=== PATIENT | female | born 1975 | race Caucasian/White ===

== ENCOUNTER 2017-02-28 13:32 | Emergency (ER) | payer MEDICAID ==
[~2017-02-28] VITALS: Ht 160 cm; Wt 52.2 kg
[~2017-02-28 13:32] MED LIST: ACTHAR PO; AMBIENCR; ATIVAN1 MG PO; BACLOFEN 10MG T10 M1 PO; BENADRYL25 MG PO; BENTYL10 MG; CALCIUM-VITAMI1 EACH PO; CELEXA20 MG PO; CELLCEPT500 MG PO; CENTRUM SILVER1 EAC2 PO; CIPRO250 M1 PO; CITRATE OF MAG296 ML PO; CLONAZEPAM 0.50.5 M1; CLONAZEPAM 0.50.5 M1 PO; CLONAZEPAM 1 MG1 M1 PO; COPAXONE; COUGH DROPS1 EAC1 PO; CYMBALTA60 MG PO; DEXAMETHASONE 22 M1; ENOXAPARIN40 MG/0.1 SUBQ; EQUETRO200 MG; FIORICET 50-321 EACH PO; FLEXERIL PO; FLONASE 0.05%50 MCG NS; HYDROCODON-ACE1 EAC7; HYDROCODONE-AP1 EA15 PO; HYDROCODONE-AP1 EAC6 PO; HYDROMORPHO2 MG/1 M5 IV; IBUPROFEN 600600 M1 PO; IBUPROFEN 800800 M1 PO; LAMICTAL100 MG PO; LEXAPRO20 MG PO; LIORESAL 10 MG10 MG PO; LITHIUM CARBON300 M3 PO; MAXALT; MINIPRESS1 MG PO; MIRALAX17 GM PO; MOBIC7.5 MG PO; MUSCLE RELAXER; NEURONTIN 300300 M1 PO; NEURONTIN600 MG PO; NORCO 10-325 T1 EACH PO; NORCO 5-325 TA1 EACH PO; NORCO 7.5-3251 EACH PO; ONDANSETRON HCL4 M2 IV; PANTOPRAZOLE SO40 M1 PO; PERCOCET PO; PHENERGAN 25 MG25 M1 RECTAL; PREDNISONE 20 M20 M1; PREDNISONE 20 M20 M1 PO; PREDNISONE 20 M20 MG PO; PREDNISONE50 MG PO; PROAIR RESPICL90 MCG IH; PROTONIX40 M1 PO; PROZAC20 MG PO; REBIF; REMERON15 MG PO; RESTORIL7.5 MG; TOPAMAX; TOPAMAX50 MG PO; TOPIRAMATE50 MG PO; TORADOL 10 MG T10 MG PO; TRAMADOL 50 MG50 MG; TRAZODONE HCL100 MG PO; ULTRAM 50MG TAB50 MG PO; VALIUM5 MG PO; VENTOLIN HFA 1818 GM; VICODIN 5-5001 EACH PO; WAL-FEX ALLERG180 MG PO; WELLBUTRIN 100100 MG PO; XANAX 0.5 MG0.5 MG PO; ZANAFLEX2 M2 PO; ZOFRAN 4 MG ORAL4 M1 DIS; ZOFRAN4 MG PO; ZOFRAN8 MG PO; ZOLOFT50 MG; [UNRECOGNIZED DRUG - OTHER]; [UNRECOGNIZED DRUG - OTHER] PO; [UNRECOGNIZED DRUG - OTHER] SQ; [UNRECOGNIZED DRUG - REMARK]
[2017-02-28 16:07] VITALS: BP 128/88
--- NOTE | 2017-02-28 17:01 | EKG ---
[place] [address] ELECTROCARDIOGRAM REPORT Name: MADELEINE PEREZ Room: [facility]#: [id number] Admission: 02/28/17 Attend Phys: Discharge: 02/28/17 Date of : 79 Report #: [id number] THIS REPORT FOR: //name// [facility] ED Test Date: 2017-02-28 Test Time: 14:07:14 Pat Name: MADELEINE FERRERA Department: Room: Gender: F Racebook Writer: Jeb RIBEIRO : 1975 Requested By: Marilyn Lund Order Number: [id number] MD: Martín Fuchs Measurements Intervals [place] Rate: 132 P: 37 DC: 135 QRS: 0 QRSD: 134 T: 30 QT: 281 QTc: 417 Interpretive Statements Sinus tachycardia septal q waves noted Probable left atrial enlargement Baseline wander in lead(s) V2,V4,V5,V6 Compared to ECG 06/17/2014 21:29:24 Myocardial infarct finding now present Sinus rhythm no longer present Electronically Signed On 02-28-2017 17:01:29 FORMULA MAKER by Martín Fuchs [email or web address] <ELECTRONICALLY SIGNED> By: Martín Fuchs MD, [facility] 02/28/17 1701 1407 1407 Martín Fuchs MD, [facility] /EPI
== END 2017-02-28 16:08 | disposition home or self-care (01) ==
LOC: M.ERS 13:32
DX: F41.0 Panic disorder [episodic paroxysmal anxiety] (principal); G89.29 Other chronic pain; M79.7 Fibromyalgia; F43.10 Post-traumatic stress disorder, unspecified; M19.90 Unspecified osteoarthritis, unspecified site; G43.909 Migraine, unspecified, not intractable, without status migrainosus; K21.9 Gastro-esophageal reflux disease without esophagitis; F31.9 Bipolar disorder, unspecified; Z88.5 Allergy status to narcotic agent; Z88.1 Allergy status to other antibiotic agents; Z88.8 Allergy status to other drugs, medicaments and biological substances

== ENCOUNTER 2017-05-08 15:34 | Emergency (ER) | payer MEDICAID ==
[~2017-05-08] VITALS: Ht 162.6 cm; Wt 63.5 kg
[2017-05-08 16:04] LABS: URINE BILIRUBIN NEGATIVE (Negative); URINE BLOOD NEGATIVE (Negative); URINE CLARITY CLEAR; URINE COLOR YELLOW; URINE GLUCOSE-RANDOM NEGATIVE (Negative); URINE KETONES NEGATIVE (Negative); URINE LEUKOCYTES-REFLEX NEGATIVE (Negative); URINE NITRITE-REFLEX NEGATIVE (Negative); URINE PROTEIN NEGATIVE (Negative); URINE SPECIFIC GRAVITY 1.015 (1.005-1.030); URINE UROBILINOGEN 0.2 E.U./dl (0.2-1.0)
[2017-05-08] MEDS ORDERED: LAMICTAL25 MG PO (16:10)
[2017-05-08] MEDS ORDERED: AMBIEN 5 MG TABL5 M1 PO (16:11)
[2017-05-08] MEDS ORDERED: NEURONTIN300 MG PO (16:11)
[2017-05-08] MEDS ORDERED: TOPAMAX50 MG PO (16:11)
[2017-05-08 16:12] LABS: AMP/METHAMP Negative (Negative); BARBITURATES Negative (Negative); BENZODIAZEPINES Negative (Negative); COCAINE Negative (Negative); METHADONE Negative (Negative); OPIATES Negative (Negative); PCP Negative (Negative); THC Negative (Negative)
[2017-05-08] MEDS ORDERED: BENTYL 10 MG CA10 M1 PO (16:12)
[2017-05-08] MEDS ORDERED: PRAZOSIN HCL2 MG PO (16:12)
[2017-05-08] MEDS ORDERED: FLEXERIL PO (16:12)
[2017-05-08] MEDS ORDERED: KLONOPIN1 MG PO (16:13)
[2017-05-08] MEDS ORDERED: DICLOFENAC SODI75 MG PO (16:13)
[2017-05-08 16:19] LABS: ABSOLUTE BASOPHILS 0.1 thou/uL (0.0-0.2); ABSOLUTE EOSINOPHILS 0.2 thou/uL (0.0-0.7); ABSOLUTE LYMPHOCYTES 2.1 thou/uL (0.8-5.3); ABSOLUTE MONOCYTES 0.5 thou/uL (0.0-1.2); BASOPHILS 0.7 %; HEMATOCRIT 43.4 % (37.0-47.0); HEMOGLOBIN 14.4 gm/dL (12.0-15.0); LYMPHOCYTES 23.6 %; MCH 29.2 pg (26.0-34.0); MCHC 33.1 g/dL (28.0-37.0); MCV 88.3 fL (80.0-100.0); MPV 7.5 fl. (7.2-11.1); NUCLEATED RBCS 0 /100WBC; PLATELET COUNT* 237 thou/uL (150-400); POLYS 67.7 %; RBC 4.92 mil/uL (4.20-5.00); RDW-CV 13.9 % (10.5-14.5); WBC 8.8 thou/uL (4.0-11.0)
[2017-05-08 16:38] LABS: ACETAMINOPHEN < 2 ug/mL (10-30); ALCOHOL < 10 mg/dL (<10); SALICYLATE < 2.8 mg/dL (2.8-20.0)
[2017-05-08 16:48] LABS: CALCIUM 8.7 mg/dL (8.5-10.1); CREATININE 0.9 mg/dL (0.6-1.3); POTASSIUM 4.6 mmol/L (3.5-5.1)
[2017-05-08 16:52] LABS: ALBUMIN 3.9 g/dL (3.4-5.0); TOTAL BILIRUBIN 0.4 mg/dL (<0.1-1.0); TOTAL PROTEIN 6.4 g/dL (6.4-8.2)
[2017-05-09 00:53] VITALS: BP 109/68
== END 2017-05-09 00:54 ==
LOC: M.ERS 15:34
PROVIDERS: Emergency Medicine Emergency Medical Services
DX: R45.851 Suicidal ideations (principal); M79.7 Fibromyalgia; K21.9 Gastro-esophageal reflux disease without esophagitis; F31.9 Bipolar disorder, unspecified; M19.90 Unspecified osteoarthritis, unspecified site; G43.909 Migraine, unspecified, not intractable, without status migrainosus; Z88.5 Allergy status to narcotic agent; Z88.6 Allergy status to analgesic agent; Z88.8 Allergy status to other drugs, medicaments and biological substances

== ENCOUNTER 2018-12-23 17:47 | Inpatient (IN) | payer MEDICAID ==
[~2018-12-23] VITALS: Ht 162.6 cm; Wt 46.7 kg
[~2018-12-23 17:47] MED LIST changes: +AMBIEN 5 MG TABL5 M1 PO; +BENTYL 10 MG CA10 M1 PO; +DICLOFENAC SODI75 MG PO; +KLONOPIN1 MG PO; +LAMICTAL25 MG PO; +NEURONTIN300 MG PO; +PRAZOSIN HCL2 MG PO
[2018-12-23 17:58] VITALS: BP 118/78
[2018-12-23] MEDS ORDERED: GLATIRAMER20 MG/1 ML SUBQ (18:03)
[2018-12-23] MEDS ORDERED: DESYREL300 MG PO (18:03)
[2018-12-23] MEDS ORDERED: TOPROL XL50 MG PO (18:04)
[2018-12-23 19:31] LABS: CREATININE 1.1 mg/dL (0.6-1.3); POTASSIUM 4.3 mmol/L (3.5-5.1)
[2018-12-23 19:42] LABS: ALBUMIN 4.2 g/dL (3.4-5.0); TOTAL BILIRUBIN 0.3 mg/dL (<0.1-1.0); TOTAL PROTEIN 7.3 g/dL (6.4-8.2)
[2018-12-23 19:53] LABS: ABSOLUTE BASOPHILS 0.1 thou/uL (0.0-0.2); ABSOLUTE EOSINOPHILS 0.2 thou/uL (0.0-0.7); ABSOLUTE LYMPHOCYTES 2.6 thou/uL (0.8-5.3); ABSOLUTE MONOCYTES 0.6 thou/uL (0.0-1.2); BASOPHILS 1.1 %; EOSINOPHILS 1.9 %; HEMATOCRIT 41.1 % (37.0-47.0); HEMOGLOBIN 13.9 gm/dL (12.0-15.0); LYMPHOCYTES 24.9 %; MCHC 33.7 g/dL (28.0-37.0); MCV 88.9 fL (80.0-100.0); MONOCYTES 5.5 %; MPV 7.7 fl. (7.2-11.1); NUCLEATED RBCS 0 /100WBC; PLATELET COUNT* 301 thou/uL (150-400); POLYS 66.6 %; RBC 4.62 mil/uL (4.20-5.00); RDW-CV 13.1 % (10.5-14.5); WBC 10.5 thou/uL (4.0-11.0)
[2018-12-23 20:06] VITALS: BP 99/70
[2018-12-23 20:06] LABS: APTT 23.1 Seconds (25.0-31.3); PROTIME 10.5 Seconds (9.20-11.50)
[2018-12-23 20:15] VITALS: BP 109/70
[2018-12-23] MEDS ORDERED: TOPAMAX100 MG PO (20:46)
[2018-12-23] MEDS ORDERED: LITHIUM CARBON300 M3 PO (20:56)
[2018-12-24 07:50] VITALS: BP 97/65
[2018-12-24] MEDS ORDERED: RIZATRIPTAN10 M1 PO (14:32)
[2018-12-24 15:44] VITALS: BP 100/62
--- NOTE | 2018-12-24 17:07 | EKG ---
[place] [address] ELECTROCARDIOGRAM REPORT Name: VIKTORADINAOraMADELEINE HERRERA Room: [address] ADM IN M.R.#: [id number] Admission: 12/23/18 Attend Phys: Trinh Rodgers Discharge: Date of : 79 Report #: [id number] THIS REPORT FOR: //name// [facility] ED Test Date: 2018-12-23 Test Time: 18:33:30 Pat Name: MADELEINE FERRERA Department: Room: [facility] Gender: F Burrer Operator: : 1975 Requested By: Raj Reynaga Order Number: [id number] MD: Martín Fuchs Measurements Intervals [place] Rate: 86 P: 59 [place]: 141 QRS: 19 QRSD: 82 T: 31 QT: 385 QTc: 461 Interpretive Statements Sinus rhythm Borderline T wave abnormalities Baseline wander in lead(s) V1 Compared to ECG 02/28/2017 14:07:14 Sinus tachycardia no longer present Q waves no longer present Electronically Signed On 12-24-2018 17:06:47 IRISH MOSS GATHERER by Martín Fuchs [email or web address] <ELECTRONICALLY SIGNED> By: Martín Fuchs MD, FACC 12/24/18 1706 1833 1833 Martín Fuchs MD, [facility] /EPI
[2018-12-25 00:12] LABS: URINE BILIRUBIN NEGATIVE (Negative); URINE BLOOD NEGATIVE (Negative); URINE CLARITY CLEAR; URINE COLOR STRAW; URINE GLUCOSE-RANDOM NEGATIVE (Negative); URINE KETONES NEGATIVE (Negative); URINE LEUKOCYTES-REFLEX NEGATIVE (Negative); URINE NITRITE-REFLEX NEGATIVE (Negative); URINE PROTEIN NEGATIVE (Negative); URINE SPECIFIC GRAVITY <= 1.005 (1.005-1.030); URINE UROBILINOGEN 0.2 E.U./dl (0.2-1.0)
[2018-12-25 00:30] VITALS: BP 108/65
[2018-12-25 07:40] VITALS: BP 124/67
[2018-12-25 16:00] VITALS: BP 126/73; BP 97/62
[2018-12-25 20:00] VITALS: BP 104/64
[2018-12-26 07:50] VITALS: BP 99/59
[2018-12-26 16:32] VITALS: BP 121/76
[2018-12-26 19:30] VITALS: BP 107/73
[2018-12-27 08:00] VITALS: BP 109/60
--- NOTE | 2018-12-27 18:57 | CON ---
[address] [address] CONSULTATION Name: MADELEINE FERRERA Room: [address] IN M.R.#: [id number] Admission: 12/23/18 Attend Phys: Trinh Rodgers Discharge: Date of : 79 Report #: [id number] THIS REPORT FOR: //name// CC: Trinh Jordan DATE OF SERVICE: 12/24/2018 HISTORY OF PRESENT ILLNESS: This is a 43-year-old female patient who has a complicated history. The patient provides history that she was diagnosed with multiple sclerosis about 10 years ago. The history is very unclear and complicated. I do not know what initial symptoms this patient had. Apparently, she has some trouble with the vision on the right side. She used to see Dr. Prado at [facility] who is subspecialized in MS. They indicated that at one time, Dr. Prado told him to stop taking all the medications related to her MS and start taking vitamins. They also tell me Dr. Prado thought she does not have MS and has NMO. I do not have any records. They also tell me that her test for the NMO was negative and I suspect that was a presumptive diagnosis. Subsequently, she started seeing Dr. Snowden who is a neurologist at [facility]. About 1 year ago, they stopped all her medication because they thought that although she does have underlying MS, but her symptoms are more related to conversion disorder. About a month ago the patient was started on Copaxone again. I tried to get a good history for relapsing remitting MS, which she says she has been diagnosed, but I cannot get a good history. This history is complicated and it raised the possibility that other neurologist she has been followed that has raised the possibility that many of her symptoms are not related to MS or they may have thought she has a NMO or may have question the whole diagnosis of MS. She received steroids multiple times. They do not know how. We need to get those records. REVIEW OF SYSTEMS: Positive for pretty significant psychiatric problem in this patient and she is on multiple medications for that. She also has multiple other diagnoses like fibromyalgia, posttraumatic stress disorder, migraine, bipolar disorder, depression, anxiety. This was her relevant 14-point review of system. She complained of visual disturbances. She does not complain of any cardiac or respiratory symptoms. She does have some nausea. She denies any symptoms. There are no clearcut musculoskeletal symptoms. There is some problem with disability according to the family. There is a lot of psychiatric symptoms. She does not have any new constitutional, dermatological, hematological symptoms. PAST MEDICAL HISTORY: Positive for multiple things including a possible diagnosis of NMO or multiple sclerosis[place] [address] CONSULTATION Name: MADELEINE FERRERA Room: [address] IN .R.#: [id number] Admission: 12/23/18 Attend Phys: Trinh Rodgers Discharge: Date of : 79 Report #: [id number] FAMILY HISTORY: Unremarkable. SOCIAL HISTORY: She does not smoke. PHYSICAL EXAMINATION: Indicates she is alert, responsive. She believes her memory, fund of knowledge is at her baseline. It is decreased to some extent. On my examination sometime she will count my fingers, sometime she will not. On neuromuscular examination, effort is very poor. She indicates she has no position sense in the lower extremities. I cannot tell about cerebellar sign. Cardiac examinations appear unremarkable. She is thinly built individual. Her blood pressure is 97/65, respirations 16, pulse is 68, temperature is 97.6. I reviewed her records here and looks like she saw a neurologist in 2017, Dr. Ray, she got some steroids at that time, she had an MRI, which has not shown any active lesion. She thinks that she may have had an MRI, a few months ago also. IMPRESSION: Although it would appear that this patient has either MS or NMO in the baseline, but a lot of her problems are psychological. If we can confirm the diagnosis of NMO then she needs to be treated altogether differently but large percentage of other symptoms are psychiatric. She already got a dose of steroids in the hospital and I will be reluctant to give her too much steroids. I discussed with her that and we have discussed all in the past that she needs to go to the hospital, which have some subspecialisation in MS, which can be or [facility]. We might give her some tapering dose of oral steroids, but I am reluctant to give her repeated doses of gadolinium until the diagnosis can get established and since she has also somewhat psychological problem, I told them that she should be in the hospital with some subspecialist with MS is available, preferably at , but if they want to go to [facility] that is also fine because I think they also have somebody subspecialized in MS. <ELECTRONICALLY SIGNED> By: Beny Faria MD 12/27/18 1857 1110 [id number] Faria MD /nt
[2018-12-27 21:00] VITALS: BP 110/71
[2018-12-28 07:45] VITALS: BP 106/74
[2018-12-28] MEDS ORDERED: MEDROL DOSPAK21 TA1 PO (14:30)
[2018-12-28 14:55] VITALS: BP 106/74
== END 2018-12-28 16:10 | disposition home or self-care (01) | DRG 60 ==
LOC: M.ERS 17:47 → M.3W 18:47 → M.TBA-ER 18:47 → M.3W 20:57
PROVIDERS: Family Medicine; ADMIT Family Medicine
DX: G35 Multiple sclerosis (principal); G89.29 Other chronic pain; F32.9 Major depressive disorder, single episode, unspecified; F41.9 Anxiety disorder, unspecified; M19.90 Unspecified osteoarthritis, unspecified site; G43.909 Migraine, unspecified, not intractable, without status migrainosus; K21.9 Gastro-esophageal reflux disease without esophagitis; R00.0 Tachycardia, unspecified; K59.00 Constipation, unspecified; G62.9 Polyneuropathy, unspecified; E73.9 Lactose intolerance, unspecified; Z88.6 Allergy status to analgesic agent; Z88.1 Allergy status to other antibiotic agents; Z88.8 Allergy status to other drugs, medicaments and biological substances; Z82.49 Family history of ischemic heart disease and other diseases of the circulatory system; Z76.5 Malingerer [conscious simulation]; Z79.899 Other long term (current) drug therapy